=== PATIENT | female | born 1960 | race Caucasian/White ===

== ENCOUNTER 2023-12-14 17:11 | Emergency (ER) | payer SELFPAY ==
[~2023-12-14] VITALS: Ht 162.6 cm; Wt 68.0 kg
[2023-12-14 17:14] VITALS: BP 129/78; PULSE 102; RESP 24; TEMP 97.8; O2SAT 95
[2023-12-14] MEDS: NACL 0.9% 1,000 ML IV ONE (17:35)
[2023-12-14] MEDS: KETOROLAC 30 MG/ML VIAL IVP ONE (17:37)
[2023-12-14] MEDS: ONDANSETRON 4 MG/2 ML VIAL IVP ONE (17:37)
[2023-12-14 18:12] LABS: FLU A ANTIGEN negative (NEGATIVE); FLU B ANTIGEN NEGATIVE (NEGATIVE)
[2023-12-14 19:44] VITALS: TEMP 98.3
[2023-12-14] MEDS: MORPHINE SULFATE 4 MG/ML SYR IVP ONE (19:50)
[2023-12-14] MEDS ORDERED: ACET-503 PO (20:23)
[2023-12-14] MEDS ORDERED: IBUP-2213 PO (20:23)
[2023-12-14] MEDS ORDERED: ONDA8TAB87 PO (20:23)
[2023-12-14] MEDS ORDERED: PRED20TA5 PO (20:23)
[2023-12-14] MEDS ORDERED: AZIT250T4 PO (20:23)
[2023-12-14 20:24] VITALS: BP 121/67; PULSE 82; RESP 15; O2SAT 93
== END 2023-12-14 20:48 | disposition home or self-care (01) ==
LOC: MED 17:11
DX: J18.9 Pneumonia, unspecified organism (principal); Z20.822 Contact with and (suspected) exposure to COVID-19; F17.200 Nicotine dependence, unspecified, uncomplicated; Z79.899 Other long term (current) drug therapy
CPT/HCPCS: 71045; 87426; 87804; 96361; 96374; 96375; 99284; J1885; J2270; J2405; J7030